=== PATIENT | female | born 2000 | race Hispanic/Latino ===

== ENCOUNTER 2025-02-02 21:20 | Emergency (ER) | payer MEDICAID, SELFPAY ==
[2025-02-02 21:44] LABS: Pregnancy Test - Urine (BHCG) POSITIVE (Negative); Pregu Control Background? CLEAR/WHITE (CLR/WHITE); Pregu Control Bar Appear? YES (CONTROL BAR)
[2025-02-02 21:45] LABS: Glucose, Urine (Dipstick) Normal (Negative); Leukocyte Negative (Negative); Protein, Urine (Dipstick) 30 mg/dl (Neg-Trace); Specific Gravity, Urine 1.020 (1.005-1.030)
[2025-02-02 22:14] LABS: CAUTI Indications for Culture Dysuria,urgency,freq; WBC/HPF 0-3 HPF (0-3)
[2025-02-02 22:15] LABS: Bacteria/HPF 2+ HPF (None Seen)
[2025-02-02 22:16] LABS: Sperm/HPF Rare HPF (None Seen)
[2025-02-02 22:17] LABS: Mucous/LPF 3+ LPF (<2+)
[2025-02-02 22:19] LABS: Urine Culture Reflex No No
== END 2025-02-02 23:37 | disposition home or self-care (01) ==
LOC: CSHERS 21:20
DX: O21.9 Vomiting of pregnancy, unspecified (principal); Z3A.12 12 weeks gestation of pregnancy
CPT/HCPCS: 81001; 81025; 87426; 99283; Q0162

== ENCOUNTER 2025-06-13 16:59 | Observation (INO) | payer MEDICAID ==
[2025-06-13] MEDS ORDERED: hydrALAZINE 20 MG/ML VIAL SLOW IVP PRN (17:10)
[2025-06-13 17:57] VITALS: BMI 29.4
[2025-06-13 18:05] LABS: ALT (SGPT) 167 U/L (Less than 34); AST (SGOT) 95 U/L (11-34); Albumin 2.5 g/dL (3.1-4.5); Alkaline Phosphatase 330 U/L (40-110); Anion Gap 16 mmol/L (10-20); BUN (Urea Nitrogen) 10 mg/dL (7.0-18.7); Bilirubin, Total 0.4 mg/dL (0.3-1.2); Calc. Creatinine Clearance 129 mL/min (70-130); Calcium 9.3 mg/dL (7.8-10.44); Carbon Dioxide 22 mmol/L (22-29); Chloride 105 mmol/L (98-107); Globulin 4.3 g/dL (2.4-3.5); Glucose 103 mg/dL (70-105); Potassium 4.7 mmol/L (3.5-5.1); Sodium 138 mmol/L (136-145)
[2025-06-13 19:54] LABS: #Basophils Less than 0.03 10x3/uL (0.0-0.2); #Eosinophils 0.04 10x3/uL (0.0-0.5); #Monocytes 0.26 10x3/uL (0.0-1.1); #Neutrophils 3.55 10x3/uL (1.5-8.4); %Basophils 0.4 % (0.0-2.0); %Eosinophils 0.7 % (0.0-6.0); %Lymphocytes 27.8 % (18.0-47.0); %Monocytes 4.8 % (0.0-10.0); %Neutrophils 65.9 % (40.0-75.0); Hematocrit 36.7 % (34.9-44.5); Hemoglobin 12.1 g/dL (12.0-15.5); Mean Corpuscular Hemoglobin 29.7 pg (27.0-33.0); Mean Corpuscular Volume 90.2 fL (81.6-98.3); Platelet Count 241 10x3/uL (150-450); Red Blood Cell (RBC) Count 4.07 10x6/uL (3.90-5.03); White Blood Cell (WBC) Count 5.39 10x3/uL (3.5-10.5)
[2025-06-13] MEDS ORDERED: Ondansetron PF 4 MG/2 ML Vial IVP PRN (20:24)
[2025-06-13] MEDS ORDERED: diphenhydrAMINE 25 MG CAP PO PRN (20:53)
[2025-06-13] MEDS: Ursodiol 300 MG CAP PO SCH (22:21)
[2025-06-13 22:57] LABS: Hep A IgM AB NONREACTIVE (NonReactive); Hep A IgM S/CO 0.63 S/CO (0-0.79); Hep B Core IgM Index 0.09 S/CO (0-0.79); Hep B Surf Ag NONREACTIVE S/CO (NonReactive); Hep C IgG Ab NONREACTIVE S/CO (NonReactive); Hep C Index 0.24 S/CO (0-0.79)
[2025-06-13] MEDS: Aspirin 81 mg Enteric Coated Tablet PO SCH (23:09)
[2025-06-14 04:44] LABS: ALT (SGPT) 154 U/L (Less than 34); AST (SGOT) 103 U/L (11-34); Albumin 2.1 g/dL (3.1-4.5); Alkaline Phosphatase 253 U/L (40-110); Anion Gap 11 mmol/L (10-20); BUN (Urea Nitrogen) 9 mg/dL (7.0-18.7); Bilirubin, Total 0.4 mg/dL (0.3-1.2); Calc. Creatinine Clearance 101 mL/min (70-130); Calcium 8.9 mg/dL (7.8-10.44); Carbon Dioxide 24 mmol/L (22-29); Chloride 106 mmol/L (98-107); Globulin 4.0 g/dL (2.4-3.5); Glucose 115 mg/dL (70-105); Potassium 3.7 mmol/L (3.5-5.1); Sodium 137 mmol/L (136-145)
[2025-06-14 04:51] LABS: Protein, Urine Random Quant 23.0 mg/dL (1-14)
[2025-06-14 08:04] VITALS: BP 117/73; TEMP 98.4
[2025-06-14] MEDS: Ursodiol 300 MG CAP PO SCH (09:18)
[2025-06-15 23:31] LABS: Group B Streptococcus by PCR Not Detected (NotDetected)
== END 2025-06-14 10:00 | disposition home health service, planned readmission (86) ==
LOC: CSHLD/OP 16:59 → INTOOBSV 20:38 → CSHLD 20:38 → CSHANTE 23:40
PROVIDERS: ADMIT Family Medicine; ATTEND Family Medicine
DX: O26.643 Intrahepatic cholestasis of pregnancy, third trimester (principal); Z3A.31 31 weeks gestation of pregnancy
CPT/HCPCS: 36415; 59025; 76705; 76819; 80053; 80074; 82239; 82570; 84156; 85025; 87653; 96360; 99285

== ENCOUNTER 2025-06-19 17:50 | Inpatient (IN) | payer MEDICAID, OTHER ==
[2025-06-19 18:02] VITALS: BMI 29.6
[2025-06-19] MEDS ORDERED: Lidocaine 1% (PF) 30 ML VIAL SC PRN (19:11)
[2025-06-19] MEDS ORDERED: Ondansetron PF 4 MG/2 ML Vial IVP PRN (19:11)
[2025-06-19] MEDS ORDERED: hydrALAZINE 20 MG/ML VIAL SLOW IVP PRN (19:11)
[2025-06-19] MEDS ORDERED: Carboprost 250 MCG/ML AMP IM PRN (19:11)
[2025-06-19] MEDS ORDERED: Methylergonovine 0.2 MG/ML VIAL IM PRN (19:11)
[2025-06-19] MEDS ORDERED: Diphenoxylate HCl/Atropine Tablet PO PRN ×2 (19:14)
[2025-06-19] MEDS ORDERED: Ibuprofen 800 MG TAB PO PRN (19:14)
[2025-06-19] MEDS ORDERED: Tranexamic Acid 1,000 MG/10 ML VIAL IVP PRN (19:14)
[2025-06-19] MEDS ORDERED: Oxytocin 30 units/NS 500 ML 500 ML IV SCH ×2 (19:15)
[2025-06-19 19:49] LABS: Hematocrit 32.8 % (34.9-44.5); Hemoglobin 11.3 g/dL (12.0-15.5); Mean Corpuscular Hemoglobin 30.0 pg (27.0-33.0); Mean Corpuscular Volume 87.0 fL (81.6-98.3); Platelet Count 207 10x3/uL (150-450); Red Blood Cell (RBC) Count 3.77 10x6/uL (3.90-5.03); White Blood Cell (WBC) Count 5.61 10x3/uL (3.5-10.5)
[2025-06-19 19:56] LABS: Hep B Surf Ag - L&D Non-Reactive S/CO (NonReactive)
[2025-06-19 19:58] LABS: Syphilis Antibody Index 0.08 S/CO (<1.00 Non-Reactive)
[2025-06-19 20:27] LABS: ALT (SGPT) 94 U/L (Less than 34); AST (SGOT) 56 U/L (11-34); Albumin 2.3 g/dL (3.1-4.5); Alkaline Phosphatase 319 U/L (40-110); Anion Gap 16 mmol/L (10-20); BUN (Urea Nitrogen) 14 mg/dL (7.0-18.7); Bilirubin, Total 0.4 mg/dL (0.3-1.2); Calc. Creatinine Clearance 101 mL/min (70-130); Calcium 8.5 mg/dL (7.8-10.44); Carbon Dioxide 18 mmol/L (22-29); Chloride 107 mmol/L (98-107); Globulin 3.9 g/dL (2.4-3.5); Glucose 124 mg/dL (70-105); Potassium 4.0 mmol/L (3.5-5.1); Sodium 137 mmol/L (136-145)
[2025-06-20] MEDS: Oxytocin 30 units/NS 500 ML 500 ML IV SCH (16:28)
[2025-06-20] MEDS: fentaNYL/Ropivacaine Epidural 100 ML ONE (20:48)
[2025-06-20] MEDS ORDERED: Acetaminophen 325 MG TAB PO PRN (20:54)
[2025-06-20] MEDS ORDERED: diphenhydrAMINE 50 MG/ML VIAL IVP PRN (20:54)
[2025-06-20] MEDS ORDERED: Ondansetron PF 4 MG/2 ML Vial IVP PRN (20:54)
[2025-06-20] MEDS ORDERED: Communication Order-Pharmacy FS SCH (21:00)
[2025-06-20] MEDS ORDERED: fentaNYL 2 mcg/Ropivacaine 0.2% Epidural 100 ML CADD EPIDURAL SCH (21:00)
[2025-06-21 00:42] LABS: Hematocrit 31.3 % (34.9-44.5); Hemoglobin 10.5 g/dL (12.0-15.5); Mean Corpuscular Hemoglobin 29.5 pg (27.0-33.0); Mean Corpuscular Volume 87.9 fL (81.6-98.3); Platelet Count 177 10x3/uL (150-450); Red Blood Cell (RBC) Count 3.56 10x6/uL (3.90-5.03); White Blood Cell (WBC) Count 11.46 10x3/uL (3.5-10.5)
[2025-06-21 00:53] LABS: MDiff Complete? YES; Platelet Adequacy Comment Appears Adequate; RBC Morphology Within Normal Limits
[2025-06-21] MEDS: Acetaminophen 500 MG TAB PO PRN (01:25)
[2025-06-21] MEDS ORDERED: Bicitra 30 ML UDCUP PO PRN (03:14)
[2025-06-21] MEDS ORDERED: Famotidine/PF 20 mg/2ml Vial SLOW IVP PRN (03:14)
[2025-06-21] MEDS ORDERED: Azithromycin 500 MG in Sodium Chloride 0.9% 250 ML 250 ML IVPB SCH (03:15)
[2025-06-21] MEDS ORDERED: Meperidine HCl/PF 25 MG (1 mL) VIAL SLOW IVP PRN (04:09)
[2025-06-21] MEDS ORDERED: Ondansetron PF 4 MG/2 ML Vial IVP PRN ×3 (04:09→08:51)
[2025-06-21] MEDS ORDERED: Communication Order-Pharmacy FS SCH (04:15)
[2025-06-21] MEDS ORDERED: Ketorolac Tromethamine 30 MG (1 mL) VIAL IVP SCH (04:15)
[2025-06-21 04:21] LABS: Analyzer IN Cardio CS NICU; RapidComm Collect By RN
[2025-06-21 04:22] LABS: Analyzer IN Cardio CS NICU; RapidComm Collect By RN; pH (Cord, venous) 7.296 (7.250-7.350)
[2025-06-21] MEDS: diphenhydrAMINE 50 MG/ML VIAL IVP PRN (07:36)
[2025-06-21] MEDS ORDERED: Lanolin Ointment 7 GM TUBE TOP PRN (08:51)
[2025-06-21] MEDS ORDERED: Methylergonovine 0.2 MG/ML VIAL IM PRN (08:51)
[2025-06-21] MEDS ORDERED: Simethicone Chewable 80 MG TAB PO PRN (08:51)
[2025-06-21] MEDS ORDERED: Oxytocin 30 units/NS 500 ML 500 ML IV SCH (08:51)
[2025-06-21] MEDS ORDERED: hydrALAZINE 20 MG/ML VIAL SLOW IVP PRN (08:51)
[2025-06-21] MEDS ORDERED: Acetaminophen 325 MG TAB PO PRN (08:51)
[2025-06-21] MEDS: Ferrous Sulfate 325 MG TAB PO SCH (09:30)
[2025-06-21] MEDS: CEFAZOLIN 2 GM VIAL ONE (09:31)
[2025-06-21] MEDS: Lidocaine 2% MPF 10 ML AMP (For Epidural Use) ONE (09:31)
[2025-06-21] MEDS: Azithromycin 500 MG VIAL ONE (09:31)
[2025-06-21] MEDS: Oxytocin 10 UNITS/ML VIAL ONE ×2 (09:32)
[2025-06-21] MEDS: Ketorolac Tromethamine 30 MG (1 mL) VIAL ONE (09:32)
[2025-06-21] MEDS: Tranexamic Acid 1,000 MG/10 ML VIAL ONE (09:32)
[2025-06-21] MEDS ORDERED: Bupivacaine/Epinephrine 0.25% 30 ML VIAL ONE (11:58)
[2025-06-21] MEDS ORDERED: Lidocaine 2% MPF 10 ML AMP (For Epidural Use) ONE (11:58)
[2025-06-21] MEDS: Ketorolac Tromethamine 30 MG (1 mL) VIAL IVP PRN (12:19)
[2025-06-21] MEDS: Clindamycin/D5W 900 MG in Premix 1 BAG IVPB SCH (18:06)
[2025-06-22] MEDS: Ondansetron PF 4 MG/2 ML Vial ONE (04:05)
[2025-06-22 06:30] LABS: Hematocrit 25.6 % (34.9-44.5); Hemoglobin 8.5 g/dL (12.0-15.5); Mean Corpuscular Hemoglobin 29.8 pg (27.0-33.0); Mean Corpuscular Volume 89.8 fL (81.6-98.3); Platelet Count 154 10x3/uL (150-450); Red Blood Cell (RBC) Count 2.85 10x6/uL (3.90-5.03); White Blood Cell (WBC) Count 14.43 10x3/uL (3.5-10.5)
[2025-06-22] MEDS: Ibuprofen 800 MG TAB PO SCH (09:25)
[2025-06-23 01:39] LABS: Hep C IgG Ab NONREACTIVE S/CO (NonReactive); Hep C Index 0.20 S/CO (0-0.79)
[2025-06-23 08:46] VITALS: BP 110/70; TEMP 98.5
== END 2025-06-23 14:35 | disposition home or self-care (01) | DRG 786 ==
LOC: CSHLD 17:50 → CSHPP 06-21 08:30
PROVIDERS: ADMIT Family Medicine; ATTEND Family Medicine
PROC: 4A1HXCZ Monitoring of Products of Conception, Cardiac Rate, External Approach (ICD-10-PCS; 2025-06-19)
PROC: 10D00Z1 Extraction of Products of Conception, Low, Open Approach (ICD-10-PCS; principal; 2025-06-21)
PROC: 10907ZC Drainage of Amniotic Fluid, Therapeutic from Products of Conception, Via Natural or Artificial Opening (ICD-10-PCS; 2025-06-21)
PROC: 3E03329 Introduction of Other Anti-infective into Peripheral Vein, Percutaneous Approach (ICD-10-PCS; 2025-06-21)
DX: O26.643 Intrahepatic cholestasis of pregnancy, third trimester (principal); O41.1030 Infection of amniotic sac and membranes, unspecified, third trimester, not applicable or unspecified; Z3A.36 36 weeks gestation of pregnancy; Z37.0 Single live birth; O76 Abnormality in fetal heart rate and rhythm complicating labor and delivery; O99.02 Anemia complicating childbirth; O69.81X0 Labor and delivery complicated by cord around neck, without compression, not applicable or unspecified; Z79.899 Other long term (current) drug therapy
CPT/HCPCS: 36415; 51702; 80053; 82239; 82805; 85025; 85027; 86780; 86803; 86850; 86900; 86901; 87340; 88307; J0290; J1200; J1580; J1885; J2270; J2274; J2405; J2590; J3010; J3490; J7120